=== PATIENT | female | born 1970 | race Two or more races ===

== ENCOUNTER 2018-07-16 08:09 | Observation (INO) | payer OTHER ==
--- NOTE | 2018-07-16 08:48 | PDOC ---
History of Present Illness - General Chief Complaint: Revisit, Lab Variance Stated Complaint: ANEMIA Time Seen by Provider: 07/16/18 08:23 History Source: Patient Exam Limitations: Language Barrier (cyrocom [id number]) - History of Present Illness Initial Comments: 07/16/18 08:46 48 yr old amharic speaking woman A1 with no significant phmx sent by PCP ( Camilo Cedeño from [address] [place] [address]) for anemia seen on routine blood work yesterday. Pt received phone call last night that her Hgb was 6.0 and to present to the ED. pt has been having weakness, nausea, intermittent dizziness and palpitations when walking and headache and dry mouth for the past month. LMP 1 month ago, past few cycles she notes a change in her periods with heavy flow for 2 days then stopping and flow restarting for 4 days then stopping. Pmhx: denies Gynhx: had a miscarriage at 3mo about 11 yrs ago for which she received 2 units of prbcs. 2 healthy children age 13yr old girl and 11yr old boy sochx: smoker started at age 21 with 2-3/cig per day quit with her first and restarted smoking last year 1-2/cigs per day with current everyday smoking now. denies ETOH and drug use surghx: denies Fmhx: mother with DM w/diabetic nephropathy. Allergies: NKDA Meds: none, no supplements Past History - Travel Traveled outside of the country in the last 30 days: No Close contact w/someone who was outside of country & ill: No - Past Medical History Allergies/Adverse Reactions: Allergies Allergy/AdvReac Type Severity Reaction Status Date / Time No Known Allergies Allergy Verified 07/16/18 08:13 Home Medications: Ambulatory Orders NK [No Known Home Medication] 07/16/18 Anemia: Yes - Suicide/Smoking/Psychosocial Hx Smoking History: Never smoked *Physical Exam - Vital Signs Last Vital Signs Temp Pulse Resp BP Pulse Ox 97.9 F 60 16 118/58 L 100 07/16/18 08:19 07/16/18 08:19 07/16/18 08:19 07/16/18 08:19 07/16/18 08:19 - Physical Exam General Appearance: Yes: Nourished, Appropriately Dressed HEENT: positive: EOMI, SUSHANT, Pharynx Normal. negative: Tonsillar Exudate, Rhinorrhea, Sinus Tenderness Neck: positive: Trachea midline, Normal Thyroid, Supple. negative: Carotid bruit Respiratory/Chest: positive: Lungs Clear, Normal Breath Sounds. negative: Crackles, Rales, Wheezing Cardiovascular: positive: Regular Rhythm, Regular Rate. negative: Murmur Gastrointestinal/Abdominal: positive: Normal Bowel Sounds, Flat, Soft Musculoskeletal: negative: CVA Tenderness Extremity: positive: Normal Range of Motion. negative: Calf Tenderness, Erythema Integumentary: positive: Dry, Warm. negative: Jaundice, Petechiae, Ecchymosis Neurologic: positive: Fully Oriented, Alert Moderate Sedation - Procedure Monitoring Vital Signs: Procedure Monitoring Vital Signs Temperature 97.9 F 07/16/18 08:19 Pulse Rate 60 07/16/18 08:19 Respiratory Rate 16 07/16/18 08:19 Blood Pressure 118/58 L 07/16/18 08:19 O2 Sat by Pulse Oximetry (%) 100 07/16/18 08:19 ED Treatment Course - LABORATORY CBC & Chemistry Diagram: 07/16/18 08:42 07/16/18 08:42 Medical Decision Making - Medical Decision Making 07/16/18 08:54 48 yr old woman sent by PCP for anemia. repeat labs, type and screen, cmp, tsh. will order anemia labs and prbc's pending cbc results. diff include menorrhagia, occult gi bleed counseled smoking cessation 07/16/18 09:52 type and screen hemolyized, t&S reordered and re-sent Hgb 7.2 today, given pt's symptoms, will order 2 units Prbc's ordered anemia w/u vitb12,fe, tibc, haptoglobin given unknown duration or acuity of blood loss stool guaic ordered. 07/16/18 10:11 pt says she had been having abdominal fullness and NSAID use in the past, diff now includes gastric ulcers sent microblog to [facility] for med-surg obs due to symptomatic anemia 07/16/18 10:15 sign-out provided to admitting team for med-surg obs *DC/Admit/Observation/Transfer Diagnosis at time of Disposition: Symptomatic anemia - Discharge Dispostion Decision to Admit order: Yes - Referrals Referrals: Carlene Page NP [Primary Care Provider] - - Patient Instructions - Post Discharge Activity
[2018-07-16 09:28] LABS: BASO % 1.8 % (0-2.0); EOS % 1.8 % (0-4.5); HEMATOCRIT 24.5 % (32.4-45.2); HEMOGLOBIN 7.2 GM/dL (10.7-15.3); LYMPH % 21.2 % (8-40); MCHC 29.5 g/dl (32.0-36.0); MEAN CELL VOLUME 58.6 fl (80-96); MEAN PLT VOLUME 8.8 fl (7.5-11.1); MONO % 6.4 % (3.8-10.2); NEUT % 68.8 % (42.8-82.8); PLATELET COUNT 330 K/MM3 (134-434); RBC 4.18 M/mm3 (3.60-5.2); RDW 21.6 % (11.6-15.6); WHITE BLOOD COUNT 5.2 K/mm3 (4.0-10.0)
[2018-07-16 09:29] LABS: MCH 17.3 pg (25.7-33.7)
[2018-07-16 09:43] LABS: INR 1.13 (0.83-1.09); PROTHROMBIN TIME (PATIENT) 13.3 SEC (9.7-13.0)
[2018-07-16 09:45] LABS: ALBUMIN 3.7 g/dl (3.4-5.0); ALK PHOS 61 U/L (45-117); ANION GAP 7 MMOL/L (8-16); BILIRUBIN,TOTAL 0.4 mg/dL (0.2-1); BLOOD UREA NITROGEN 9 mg/dL (7-18); CALCIUM 8.1 mg/dL (8.5-10.1); CHLORIDE 108 mmol/L (98-107); CO2 22 mmol/L (21-32); CREATININE 0.6 mg/dL (0.55-1.3); GLUCOSE,RANDOM 94 mg/dL (74-106); POTASSIUM 4.6 mmol/L (3.5-5.1); SGOT/AST 44 U/L (15-37); SGPT/ALT 12 U/L (13-61); SODIUM 137 mmol/L (136-145); TOT PROT 7.8 g/dl (6.4-8.2)
[2018-07-16 09:46] LABS: ACTIVATED PTT 23.2 SECONDS (25.2-36.5)
--- NOTE | 2018-07-16 10:26 | HP ---
CHIEF COMPLAINT: Headache, lightheadedness PCP: TEA Concepcion ([address] [place] [address]) HISTORY OF PRESENT ILLNESS: 48yo Swazi-speaking A1 F with no medical history who presents today from her PCP who sent her here for abnormal hemoglobin. Pt saw her PCP on and had routine labs drawn. She received a call from her PCP to come to the ER due to her Hgb being 6.0 on her office lab draw. Pt was found to have 7.2 Hgb here in the ED. Pt reports she's been having lightheadedness, dizziness , and palpitations intermittently for the past month exacerbated by walking and activity. She also notes some intermittent shortness of breath during these periods as well. She endorses having irregular periods for the past 3 months. She states that her menstrual period has fluctuated with heavy flow and normal flow from month to month. Her LMP was about 1 month ago with heavy flow and irregularity (started 2 days; stopped x1 day, then restarted 4 days). The last visit to her [facility] was about 10 years ago when she had a miscarriage and received 2U PRBC. Pt currently has some lightheadedness, however her palpitations have gotten better. She denies any bleeding that she is aware of. Her last BM was 1 day ago , however she does not look if her BM have become black in colour. Pt denies n/v /f/c, chest pain, abdominal pain, d/c, polyuria, dysuria, hematuria. Recent Travel: Denies PAST MEDICAL HISTORY: None reportedly PAST SURGICAL HISTORY: Denies Social History: Smoking: Former smoker; started 21yo (2-3 cig/day); quit during pregnancies; restarted last year (1-2 cigs/day) Alcohol: Denies Drugs: Denies Lives with . Has 2 children. Independent in ADLs Family History: Mother - Diabetes complicated by nephropathy Allergies No Known Allergies Allergy (Verified 07/16/18 08:13) HOME MEDICATIONS: Home Medications Medication Instructions Recorded NK [No Known Home Medication] 07/16/18 REVIEW OF SYSTEMS As per HPI PHYSICAL EXAMINATION Vital Signs - 24 hr 07/16/18 08:19 Temperature 97.9 F Pulse Rate 60 Respiratory 16 Rate Blood Pressure 118/58 L O2 Sat by Pulse 100 Oximetry (%) GENERAL: NAD, awake, alert, and fully oriented, sitting in bed. HEENT: NC/AT, ANDREA, facial pallor noted, MMM NECK: No JVD. LUNGS: CTA bilaterally. No wheezes, and no crackles. No accessory muscle use. HEART: RRR, normal S1 and S2 without murmur . ABDOMEN: Soft, NT/ND, normoactive bowel sounds, no guarding. RECTAL: Deferred due to ED examination being already performed; ER exam reportedly normal MUSCULOSKELETAL: No CVA tenderness. EXTREMITIES: 2+ radial pulses b/l, warm, well-perfused. No calf tenderness. No peripheral edema. PSYCHIATRIC: Cooperative. Good eye contact. Appropriate mood and affect. SKIN: Warm, dry, no rashes or lesions noted Laboratory Results 07/16/18 07/16/18 07/16/18 08:42 08:42 08:42 WBC 5.2 RBC 4.18 Hgb 7.2 L Hct 24.5 L MCV 58.6 L MCH 17.3 L MCHC 29.5 L RDW 21.6 H Plt Count 330 MPV 8.8 Absolute Neuts (auto) 3.6 Neutrophils % 68.8 Lymphocytes % 21.2 Monocytes % 6.4 Eosinophils % 1.8 Basophils % 1.8 Nucleated RBC % 0 Retic Count PT with INR 13.30 H INR 1.13 H PTT (Actin FS) 23.2 L Sodium 137 Potassium 4.6 Chloride 108 H Carbon Dioxide 22 Anion Gap 7 L BUN 9 Creatinine 0.6 Creat Clearance w eGFR > 60 Random Glucose 94 Calcium 8.1 L Total Bilirubin 0.4 AST 44 H ALT 12 L Alkaline Phosphatase 61 Total Protein 7.8 Albumin 3.7 Beta HCG, Quant Blood Type Antibody Screen Crossmatch ASSESSMENT/PLAN: Symptomatic microcytic anemia Menometrorrhagia --Likely 2/2 to heavy menstrual periods over recent past --Serum HCG negative --Transfuse 2U PRBC --Rpt CBC for assessment of response after transfusions --F/u iron studies (drawn prior to transfusions) --Negative hemoccult; will only need regular surveillance colonoscopy starting age 50 --Would recommend f/u with FOOD CRITIC and f/u CBC in 1 week upon discharge --Monitor for transfusion reactions --Body Masker consult --Transvaginal US ordered to r/o fibroids or endometrial pathology FEN: Fluids: Bolus as needed; encourage PO Electrolyte abnormalities: Monitor Ca; cCa 8.3 currently Nutrition: Regular diet PPX: DVT - Low risk; early ambulation GI - Not indicated currently Dispo: Place in observation M/S; rpt CBC Case to be discussed Seth Lindsey DO - IM PGY-2 Visit type - Emergency Visit Emergency Visit: Yes ED Registration Date: 07/16/18 Care time: The patient presented to the Emergency Department on the above date and was hospitalized for further evaluation of their emergent condition. - New Patient This patient is new to me today: Yes Date on this admission: 07/16/18 - Critical Care Critical Care patient: No
[2018-07-16 10:45] LABS: RETICULOCYTES 1.26 % (0.5-1.5)
[2018-07-16 10:46] LABS: LDH 466 U/L (84-246)
[2018-07-16 13:02] LABS: ANISOCYTOSIS 2+; MACROCYTOSIS 0; OVALOCYTE 1+; PLATELET ESTIMATE NORMAL
--- NOTE | 2018-07-16 13:21 | PDOC ---
Documentation entered by Micaela Castillo SCRIBE, acting as scribe for Hunter Flores MD. Attending Attestation - Resident Resident Name: Maria Dolores Knox - ED Attending Attestation I have performed the following: I have examined & evaluated the patient, The case was reviewed & discussed with the resident, I agree w/resident's findings & plan, Exceptions are as noted - HPI HPI: 07/16/18 10:09 The patient is a 48 year old female, with a significant past medical history of , who presents to the emergency department with sent by PCP for a Hgb 6.0 on routine lab work in the office yesterday. The patient states she has been intermittently experiencing dizziness, weakness, nausea, and palpitations with walking for the past month. The patient denies chest pain, shortness of breath, headache. The patient denies fever, chills, vomit, diarrhea and constipation. The patient denies dysuria, frequency, urgency and hematuria. Allergies: NKDA - Physicial Exam PE: 07/16/18 11:17 Healthy conjunctiva Heart is regular without murmurs Lungs are clear Abdomen benign, guaiac pending - Medical Decision Making 07/16/18 11:18 48-year-old female newly diagnosed anemia, symptomatic on exertion. Hemoglobin 7.2 Initiate transfusion Admit for further workup Hunter Flores MD, MD/DO: This documentation has been prepared by the taniaibe Anna Amanda, SCRIBE, under my direction and personally reviewed by me in its entirety. I confirm that the documentation accurately reflects all work, treatment, procedures, and medical decision making performed by me.
[2018-07-16 14:03] VITALS: BMI 25.9
--- NOTE | 2018-07-16 20:16 | PN ---
Teaching Attending Note Name of Resident: Seth Lindsey ATTENDING PHYSICIAN STATEMENT I saw and evaluated the patient. I reviewed the resident's note and discussed the case with the resident. I agree with the resident's findings and plan as documented. SUBJECTIVE: Patient is a 48yo Indonesian-speaking A1 Female with no medical history who presents today from her PCP's office for having low hemoglobin of 6.0 that was drawn this past on her routine labs. She is c/o having intermittent shortness of breath , also stated that she has been having irregular periods for the past 3 months. She states that her menstrual period has fluctuated with heavy flow and normal flow from month to month. The last visit to her [facility] was about 10 years ago when she had a miscarriage and received 2U PRBC. OBJECTIVE: Vital Signs Temperature 98.8 F 07/16/18 19:00 Pulse Rate 54 L 07/16/18 19:00 Respiratory Rate 20 07/16/18 19:00 Blood Pressure 110/55 L 07/16/18 19:00 O2 Sat by Pulse Oximetry (%) 95 07/16/18 18:20 GENERAL: NAD, awake, alert, and fully oriented, sitting in bed. HEENT: NC/AT, ANDREA, facial pallor noted, MMM NECK: No JVD. LUNGS: CTA bilaterally. No wheezes, and no crackles. No accessory muscle use. HEART: RRR, normal S1 and S2 without murmur . ABDOMEN: Soft, NT/ND, normoactive bowel sounds, no guarding. MUSCULOSKELETAL: No CVA tenderness. EXTREMITIES: 2+ radial pulses b/l, warm, well-perfused. No calf tenderness. No peripheral edema. PSYCHIATRIC: Cooperative. Good eye contact. Appropriate mood and affect. SKIN: Warm, dry, no rashes or lesions noted BCD WBC 5.2 K/mm3 (4.0-10.0) 07/16/18 08:42 RBC 4.18 M/mm3 (3.60-5.2) 07/16/18 08:42 Hgb 7.2 GM/dL (10.7-15.3) L 07/16/18 08:42 Hct 24.5 % (32.4-45.2) L 07/16/18 08:42 MCV 58.6 fl (80-96) L 07/16/18 08:42 MCHC 29.5 g/dl (32.0-36.0) L 07/16/18 08:42 RDW 21.6 % (11.6-15.6) H 07/16/18 08:42 Plt Count 330 K/MM3 (134-434) 07/16/18 08:42 MPV 8.8 fl (7.5-11.1) 07/16/18 08:42 CMP Sodium 137 mmol/L (136-145) 07/16/18 08:42 Potassium 4.6 mmol/L (3.5-5.1) 07/16/18 08:42 Chloride 108 mmol/L (98-107) H 07/16/18 08:42 Carbon Dioxide 22 mmol/L (21-32) 07/16/18 08:42 Anion Gap 7 MMOL/L (8-16) L 07/16/18 08:42 BUN 9 mg/dL (7-18) 07/16/18 08:42 Creatinine 0.6 mg/dL (0.55-1.3) 07/16/18 08:42 Creat Clearance w eGFR > 60 (>60) 07/16/18 08:42 Random Glucose 94 mg/dL (74-106) 07/16/18 08:42 Calcium 8.1 mg/dL (8.5-10.1) L 07/16/18 08:42 Total Bilirubin 0.4 mg/dL (0.2-1) 07/16/18 08:42 AST 44 U/L (15-37) H 07/16/18 08:42 ALT 12 U/L (13-61) L 07/16/18 08:42 Alkaline Phosphatase 61 U/L (45-117) 07/16/18 08:42 Total Protein 7.8 g/dl (6.4-8.2) 07/16/18 08:42 Albumin 3.7 g/dl (3.4-5.0) 07/16/18 08:42 Current Medications Generic Name Dose Route Start Last Admin Trade Name Freq PRN Reason Stop Dose Admin Ferrous Sulfate 325 mg 07/16/18 22:00 Feosol - PO BID NATHALIE Polyethylene Glycol 17 gm 07/17/18 10:00 Miralax (For Daily Use) - PO DAILY [facility] Home Medications Medication Instructions Recorded NK [No Known Home Medication] 07/16/18 ASSESSMENT AND PLAN: Patient is a 48yo Indonesian-speaking A1 Female with no medical history who presents today from her PCP's office for having low hemoglobin of 6.0 that was drawn this past on her routine lab exam. # Acute symptomatic microcytic anemia: iron studies ordered,2 units of PRBC and repeat labs in 4 hrs post transfusion, obgyn consult and transvaginal us # Menometrorrhagia: Transvaginal US ordered to r/o fibroids or endometrial pathology DVT Px: Low risk; early ambulation Dispo: Place in observation Follow the US report
[2018-07-16] MEDS: FERROUS SO4 325 MG TABLET (FP) PO SCH (21:02)
[2018-07-16 23:52] LABS: HEMATOCRIT 29.3 % (32.4-45.2); MCHC 30.8 g/dl (32.0-36.0); MEAN CELL VOLUME 64.1 fl (80-96); MEAN PLT VOLUME 8.8 fl (7.5-11.1); PLATELET COUNT 307 K/MM3 (134-434); RBC 4.57 M/mm3 (3.60-5.2); RDW 28.5 % (11.6-15.6); WHITE BLOOD COUNT 6.6 K/mm3 (4.0-10.0)
[2018-07-16 23:53] LABS: MCH 19.7 pg (25.7-33.7)
[2018-07-17 07:37] LABS: BASO % 1.9 % (0-2.0); EOS % 2.2 % (0-4.5); HEMATOCRIT 28.4 % (32.4-45.2); HEMOGLOBIN 8.8 GM/dL (10.7-15.3); LYMPH % 23.8 % (8-40); MCH 19.8 pg (25.7-33.7); MEAN CELL VOLUME 63.8 fl (80-96); MEAN PLT VOLUME 8.8 fl (7.5-11.1); MONO % 6.7 % (3.8-10.2); NEUT % 65.4 % (42.8-82.8); PLATELET COUNT 290 K/MM3 (134-434); RBC 4.45 M/mm3 (3.60-5.2); RDW 28.6 % (11.6-15.6)
[2018-07-17 08:20] LABS: ALBUMIN 3.4 g/dl (3.4-5.0); ALK PHOS 57 U/L (45-117); ANION GAP 7 MMOL/L (8-16); BILIRUBIN,TOTAL 0.4 mg/dL (0.2-1); BLOOD UREA NITROGEN 9 mg/dL (7-18); CHLORIDE 110 mmol/L (98-107); CO2 22 mmol/L (21-32); CREATININE 0.6 mg/dL (0.55-1.3); GLUCOSE,RANDOM 93 mg/dL (74-106); MAGNESIUM 2.6 mg/dL (1.8-2.4); PHOSPHOROUS 3.1 mg/dL (2.5-4.9); POTASSIUM 4.1 mmol/L (3.5-5.1); SGOT/AST 11 U/L (15-37); SGPT/ALT 12 U/L (13-61); SODIUM 139 mmol/L (136-145); TOT PROT 6.8 g/dl (6.4-8.2)
[2018-07-17] MEDS: FERROUS SO4 325 MG TABLET (FP) PO SCH (09:11)
--- NOTE | 2018-07-17 09:35 | PN ---
Progress Note (short form) - Note Progress Note: potato picker consult done . menometrorrhagia due to large fibroid uterus , no active bleeding now , advised iron, vit , follow up in office 1 week, treatment discussed with patient , via fitness sales associate, patient will make appointment
[2018-07-17] MEDS ORDERED: POLYETHYLENE GLYCOL 3350 119 GM BTL PO SCH (10:00)
--- NOTE | 2018-07-17 10:01 | CONS ---
DATE OF CONSULTATION: 07/17/2018 REASON FOR CONSULTATION: Heavy irregular vaginal bleeding with anemia. HISTORY OF PRESENT ILLNESS: The patient is A 48-year-old -speaking female, 3, para 2, 1, with no significant past medical history, who was admitted with hemoglobin of 7.2 and complaining of being dizzy and tired. She complained of having irregular vaginal bleeding off and on that at times has been heavy. She has lower abdominal cramps and pain. PAST MEDICAL HISTORY: Two normal spontaneous vaginal deliveries. One spontaneous . No past surgical history and no history of PID or STD. States that she has had a Pap smear with her primary doctor, which has been normal. She denies any GI or rectal bleeding. The patient has received 2 units of packed RBCs on this admission. Her hemoglobin presently is 8.8, hematocrit of 28.4. She presently is not bleeding. PHYSICAL EXAMINATION: General: The patient appeared to be alert, oriented, comfortable, with no complaints. No dizziness. Abdomen: Soft. Mild tenderness in the lower abdomen with palpable large uterus, approximately 14 to 16 weeks' size, tender. Pelvic: External genitalia normal. Vagina with no blood, no lesions. Cervix with no gross lesion and no bleeding. Uterus enlarged, irregular, with multiple fibroids, approximately 14 to 16 weeks' size and tender on exam. Adnexa: No masses were palpable. IMPRESSION: Menometrorrhagia secondary to large fibroid uterus. Pelvic sonogram confirmed a large 7-cm fundal fibroid. The endometrium was not well visualized secondary to the fibroid. PLAN: Since the patient presently is not bleeding, there is no need for any present treatment. The patient was advised to follow up in the office in 1 week for followup. Options of fibroid emphysematous versus medical treatment of the fibroids versus surgical treatment discussed with the patient via gum scoring machine operator. She will follow up in the office in 1 week to follow up for the fibroids. Advised if heavy bleeding, pain, return to the ER. ARCHIE LATIF M.D. [id number]
[2018-07-17] MEDS ORDERED: IRON SUCROSE INJECTION 300 MG in SODIUM CHLORIDE 235 ML IVPB ONE (11:00)
[2018-07-17 14:12] VITALS: BP 108/67; PULSE 58; TEMP 97.9
--- NOTE | 2018-07-17 15:14 | DS ---
Physical Exam: SUBJECTIVE: Patient seen and examined OBJECTIVE: Vital Signs Period Temp Pulse Resp BP Sys/Abreu Pulse Ox Last 24 Hr 97.8 F-98.8 F 54-65 18-20 107-119/54-71 95-99 PHYSICAL EXAM GENERAL: The patient is awake, alert, and fully oriented, in no acute distress. HEAD: Normal with no signs of trauma. EYES: PERRL, extraocular movements intact, sclera anicteric, conjunctiva clear. ENT: Ears normal, nares patent, oropharynx clear without exudates, moist mucous membranes. NECK: Trachea midline, full range of motion, supple. LUNGS: Breath sounds equal, clear to auscultation bilaterally, no wheezes, no crackles, no accessory muscle use. HEART: Regular rate and rhythm, S1, S2 without murmur, rub or gallop. ABDOMEN: Soft, nontender, nondistended, normoactive bowel sounds, no guarding, no rebound, no hepatosplenomegaly, no masses. EXTREMITIES: 2+ pulses, warm, well-perfused, no edema. NEUROLOGICAL: Cranial nerves II through XII grossly intact. Normal speech, gait not observed. PSYCH: Normal mood, normal affect. SKIN: Warm, dry, normal turgor, no rashes or lesions noted. LABS Laboratory Results - last 24 hr 07/16/18 07/16/18 07/17/18 09:28 23:30 07:00 WBC 6.6 5.0 RBC 4.57 4.45 Hgb 9.0 L 8.8 L Hct 29.3 L D 28.4 L MCV 64.1 L D 63.8 L MCH 19.7 L D 19.8 L MCHC 30.8 L 31.0 L RDW 28.5 H 28.6 H Plt Count 307 290 MPV 8.8 8.8 Absolute Neuts (auto) 3.2 Neutrophils % 65.4 Lymphocytes % 23.8 Monocytes % 6.7 Eosinophils % 2.2 Basophils % 1.9 Nucleated RBC % 0 Sodium Potassium Chloride Carbon Dioxide Anion Gap BUN Creatinine Creat Clearance w eGFR Random Glucose Calcium Phosphorus Magnesium Total Bilirubin AST ALT Alkaline Phosphatase Total Protein Albumin Blood Type O POSITIVE Antibody Screen Negative Crossmatch See Detail 07/17/18 07:00 WBC RBC Hgb Hct MCV MCH MCHC RDW Plt Count MPV Absolute Neuts (auto) Neutrophils % Lymphocytes % Monocytes % Eosinophils % Basophils % Nucleated RBC % Sodium 139 Potassium 4.1 Chloride 110 H Carbon Dioxide 22 Anion Gap 7 L BUN 9 Creatinine 0.6 Creat Clearance w eGFR > 60 Random Glucose 93 Calcium 8.0 L Phosphorus 3.1 Magnesium 2.6 H Total Bilirubin 0.4 AST 11 L ALT 12 L Alkaline Phosphatase 57 Total Protein 6.8 Albumin 3.4 Blood Type Antibody Screen Crossmatch HOSPITAL COURSE: Date of Admission:07/16/18 48 y.oi female with no PMH presented after being sent in form her PCP for having a hemoglobin of 6.0. due to her heavy menstrual cycles so she came to the ED,. on arrival her hgb was 7.2- she recieved 2 units and her hgb champ to 8.8. she had a travsnaginal u;./s done which showed a large fibroid uterus in addition to a right cyst on her ovary. she was d/c aafter having an iron infusion with strict follow up to see dr saenz the OB in 1 week in addition to see heme-onc for iron transfusion. she was stable to be d/c home. Date of Discharge: 07/17/18 Minutes to complete discharge: 39 Discharge Summary Reason For Visit: SECONDARY ANEMIA Current Active Problems Anemia (Chronic) Heavy menstrual period (Chronic) Vaginal bleeding (Chronic) Condition: Improved - Instructions Diet, Activity, Other Instructions: You came to the hospital because your blood levels were low and you were having symptoms of shortness of breath and palpitations You will need to get iron transfusions done over 14 days given that the iron stores in your body are very low Please follow up with your primary care physician, Dr. Concepcion within one week Please follow up with the feed mill operator, Dr. Saenz within one week, as you might need surgery to remove your uterus We are referring you to a compact assembler, Dr. Shepherd to see get iron transfusions done *if you begin to experience chest pains, shortness of breath, active bleeding please return to the emergency room immediately Referrals: Carlene Page NP [Primary Care Provider] - 1 Week Estrada Saenz MD [Staff Physician] - 1 Week Francisco Shepherd MD [Staff Physician] - Disposition: HOME - Home Medications Comprehensive Discharge Medication List: Ambulatory Orders Ferrous Sulfate [Feosol] 325 mg PO TID #90 tablet 07/17/18 Sennosides [Senna] 8.6 mg PO DAILY 30 Days #30 tablet 07/17/18 Problem List - Problems (1) Anemia Code(s): D64.9 - ANEMIA, UNSPECIFIED (2) Heavy menstrual period Code(s): N92.0 - EXCESSIVE AND FREQUENT MENSTRUATION WITH REGULAR CYCLE (3) Vaginal bleeding Code(s): N93.9 - ABNORMAL UTERINE AND VAGINAL BLEEDING, UNSPECIFIED This patient is new to me today: Yes Date on this admission: 07/17/18 Emergency Visit: Yes ED Registration Date: 07/16/18 Care time: The patient presented to the Emergency Department on the above date and was hospitalized for further evaluation of their emergent condition. Critical Care patient: No - Discharge Referral Referred to [facility] Med P.C.: No
--- NOTE | 2018-07-17 18:34 | PN ---
Teaching Attending Note Name of Resident: Namrata Helms ATTENDING PHYSICIAN STATEMENT I saw and evaluated the patient. I reviewed the resident's note and discussed the case with the resident. I agree with the resident's findings and plan as documented. SUBJECTIVE: no bleeding today. little abd cramping in LLQ nad lower abd. No CP or SOB OBJECTIVE: NAD CV: RRR, 2/6 Sm at base , no radiation Lungs: CTAB ext : javi duke or erythema Abd: soft, ND, TTP in suprapubic area and LLQ no rebound tenderness or guarding ASSESSMENT AND PLAN: 48 y/o lady with metomenorrhagea who was sent by PCP for anemia 1- blood loss anemia. due to vaginal bleed form fibroids. OB in stool is neg. iron studies indicate severe iron def. give IV iron x 1 , to follow with heme for full protocol TIBC and transferrin sat is still pending start iron suppl t dc 2- L ovarian cyst, pt was made aware and will need follow up imaging as out pt 3- dispo: dc home to follow with PCP , heme , and PASSENGER CAR CONDUCTOR
[2018-07-18 08:08] LABS: SERUM IRON SATURATION 22 % (15-55); TOTAL IRON BINDING CAPACITY 398 ug/dL (250-450); UIBC 310 ug/dL (131-425)
== END 2018-07-17 15:20 | disposition home or self-care (01) ==
LOC: SUPCPDRO 08:09 → JER 08:09 → JERBED 10:16 → J5S 10:58
PROVIDERS: ADMIT Internal Medicine; ATTEND Internal Medicine
PROC: 30233N1 Transfusion of Nonautologous Red Blood Cells into Peripheral Vein, Percutaneous Approach (ICD-10-PCS; principal; 2018-07-16)
PROC: 3E033GC Introduction of Other Therapeutic Substance into Peripheral Vein, Percutaneous Approach (ICD-10-PCS; 2018-07-16)
DX: D50.9 Iron deficiency anemia, unspecified (principal); N92.1 Excessive and frequent menstruation with irregular cycle; D25.9 Leiomyoma of uterus, unspecified
CPT/HCPCS: 36415; 36430; 76830-TC; 80053; 82272; 82607; 82728; 83540; 83550; 83615; 83735; 84100; 84702; 85025; 85027; 85044; 85610; 85730; 86850; 86900; 86901; 86922; 99285-25; G0378; J1756; P9038; P9058

== ENCOUNTER 2018-09-16 14:00 | Inpatient (IN) | payer OTHER ==
[2018-09-16 13:04] VITALS: BMI 26.4
--- NOTE | 2018-09-17 07:22 | HP ---
History & Physical Update - Physical Physical: No Change - Assessment Assessment: No Change - Plan Plan: No Change (h&p reviwedv , no changes)
[2018-09-17] MEDS ORDERED: PROPOFOL 20 ML ONE (07:34)
[2018-09-17] MEDS ORDERED: ROCURONIUM BROMIDE 50 MG/5 ML VIAL ONE (07:34)
[2018-09-17] MEDS ORDERED: HYDROmorphone HCl 2 MG/ML VIAL ONE (07:34)
[2018-09-17] MEDS ORDERED: fentaNYL CITRATE 250 MCG/5 ML VIAL ONE (07:34)
[2018-09-17] MEDS ORDERED: ceFAZolin SODIUM 1 GM VIAL ONE (07:36)
[2018-09-17] MEDS ORDERED: SODIUM CHLORIDE 0.9% P/F 10 ML VIAL IJ ONE (07:36)
[2018-09-17] MEDS ORDERED: BUPIVACAINE HCL/PF 0.5% (5MG/ML) 10 ML VIAL ONE (07:50)
[2018-09-17] MEDS ORDERED: MIDAZOLAM HCL 2 MG/2 ML SINGLE DOSE VIAL ONE ×2 (08:09)
[2018-09-17] MEDS ORDERED: ceFAZolin SODIUM 1 GM VIAL IVPB ONE (09:05)
[2018-09-17] MEDS ORDERED: GLYCOPYRROLATE 0.2 MG/1 ML VIAL ONE ×3 (09:31→10:33)
[2018-09-17] MEDS ORDERED: DEXAMETHASONE SOD PHOSPHATE 4 MG/1 ML VIAL ONE (09:31)
[2018-09-17] MEDS ORDERED: NEOSTIGMINE METHYLSULFATE 0.5 MG/ML - 10 ML MDV ONE (09:31)
[2018-09-17] MEDS ORDERED: KETOROLAC TROMETHAMINE 30 MG/1 ML VIAL ONE (10:10)
[2018-09-17] MEDS ORDERED: HYDROmorphone *PCA* 10MG/50ML DISP.SYRIN PCA ONE (10:38)
[2018-09-17] MEDS ORDERED: ONDANSETRON 4 MG/2 ML VIAL IVPUSH PRN ×2 (10:40→10:42)
[2018-09-17] MEDS ORDERED: IBUPROFEN 800 MG/8 ML IJ IVPB PRN (10:40)
[2018-09-17] MEDS ORDERED: PROMETHAZINE HCL 25 MG/1 ML VIAL IVPUSH PRN (10:42)
[2018-09-17] MEDS ORDERED: LACTATED RINGERS SOLUTION 1,000 ML IV SCH (10:45)
[2018-09-17] MEDS ORDERED: HYDROmorphone *PCA* 10MG/50ML DISP.SYRIN PCA SCH ×2 (10:45→12:08)
[2018-09-17] MEDS ORDERED: ELECTROLYTE-148 SOLN 1,000 ML IV SCH (10:45)
[2018-09-17] MEDS ORDERED: oxyCODONE HCL 5 MG TABLET PO PRN (10:49)
[2018-09-17] MEDS ORDERED: ACETAMINOPHEN 325 MG TABLET (FP) PO PRN (10:54)
[2018-09-17] MEDS ORDERED: BISACODYL 10 MG SUPP.RECT PR PRN (10:57)
--- NOTE | 2018-09-17 15:01 | OP ---
DATE OF OPERATION: 09/17/2018 PREOPERATIVE DIAGNOSES: Menometrorrhagia, anemia, pelvic pain, fibroid uterus, and adenomyosis. POSTOPERATIVE DIAGNOSES: Menometrorrhagia, anemia, pelvic pain, fibroid uterus, and adenomyosis. PROCEDURES: Supracervical abdominal hysterectomy, bilateral salpingectomy. SURGEON: Archie Dennis MD CHART CLERK: ANESTHESIA: General. ESTIMATED BLOOD LOSS: 50 mL. OPERATION: The patient was taken to the operating room and had adequate general anesthesia. Abdomen and perineum were prepped and draped. Pfannenstiel abdominal skin incision was made. Abdominal wall was cut [id number]. Anterior peritoneum was exposed and incised. Upon entering the abdominal cavity, upper abdomen when checked was normal. Bowels were packed away. The uterus was enlarged uniformly and consistent with adenomyosis. Both ovaries appeared to be normal. No pelvic adhesions noted. Bladder and the cul-de-sac were normal. Then, was placed at the cornua region of the uterus and the uterus was delivered. Then, with 2 large retractors in the abdomen, the round ligament was identified bilaterally, clamped with the LigaSure bipolar cautery, cauterized, and cut. The anterior leaf of broad ligament was opened. Bladder was pushed down. Then, a hole was made in broad ligament and then the left tube was grasped with bipolar cautery, cauterized along the mesosalpinx and the tubes were removed. Then, the utero-ovarian ligament was clamped with Cecil clamp, cut, and the clamp replaced with 0 Vicryl ties bilaterally. At this time, bladder was further pushed down. Bilateral uterine artery was identified, clamped with Cecil clamp, cut, and the clamp replaced with 3-0 Vicryl suture bilaterally. The stump on the cervical area was clamped with Cecil clamp, cut, and the clamp replaced with 3-0 Vicryl suture bilaterally. Then, the specimen was removed above the cervix. Then, the cervical angles were sutured with interrupted suture of the 2-0 Vicryl and then the cervix also was closed with a continuous suture of 3-0 Vicryl and hemostasis was established. Pelvic cavity several times irrigated and no active bleeding was seen. Both ureters were manually palpated were normal. Urine was clear. All the laparotomy and sponge and instrument counts were correct. No active bleeding was seen. Then, peritoneum was closed with 0 Vicryl continuous suture, muscles were brought together with interrupted suture of 3-0 Vicryl, fascia was closed with 3-0 Vicryl continuous suture, subcutaneous fat interrupted suture of 3-0 Vicryl, and the skin was closed with 4-0 Biosyn subcuticular continuous suture. Patient tolerated procedure well. Left the OR in good condition. ARCHIE DENNIS M.D. [id number]
[2018-09-17] MEDS: CEFAZOLIN 1 GM/D5W 1 GM/50 ML BAG IVPB SCH (17:05)
[2018-09-18] MEDS: CEFAZOLIN 1 GM/D5W 1 GM/50 ML BAG IVPB SCH ×3 (01:09→17:53)
[2018-09-18 07:29] LABS: POTASSIUM 4.2 mmol/L (3.5-5.1)
[2018-09-18 07:37] LABS: HEMATOCRIT 35.8 % (32.4-45.2); HEMOGLOBIN 11.6 GM/dL (10.7-15.3); MCH 27.4 pg (25.7-33.7); MCHC 32.5 g/dl (32.0-36.0); MEAN CELL VOLUME 84.2 fl (80-96); PLATELET COUNT 240 K/MM3 (134-434); RBC 4.25 M/mm3 (3.60-5.2); WHITE BLOOD COUNT 11.2 K/mm3 (4.0-10.0)
--- NOTE | 2018-09-18 07:51 | PN ---
Progress Note (short form) - Note Progress Note: Anesthesiology Post-op/Pain Service POD#1 s/p supracervical hysterectomy under GA with TAP blocks and post-op EXTENSION WORKER. Pt. is resting in bed. she does c/o some pain but this is managed with EXTENSION WORKER. She also c/o some mild nausea but this is also managed with medication. She is still NPO except ice chips. VSS. No other complaints. 48 y.o. woman with stable post-operative course. Continue EXTENSION WORKER for now and transition to PO meds once tolerating PO. Encouraged activity.
[2018-09-18] MEDS: ENOXAPARIN NA (PORCINE) 40 MG/0.4 ML DISP.SYRIN SQ SCH (09:40)
[2018-09-18 09:50] LABS: CREATININE 0.6 mg/dL (0.55-1.3)
--- NOTE | 2018-09-18 11:56 | PN ---
Progress Note (short form) - Note Progress Note: pod 1, doing well, no c/o sitting on chair CBC, BMP 09/18/18 06:35 09/18/18 06:35 Last Vital Signs Temp Pulse Resp BP Pulse Ox 98.2 F 53 L 16 101/56 L 99 09/18/18 08:00 09/18/18 08:00 09/18/18 08:00 09/18/18 08:00 09/18/18 05:40 abdomen soft, no distension, no cva incison dry no vaginal bleeding,or discharge no calf tenderness plan ambulate, d/c SHOP LEAD advance diet
[2018-09-18] MEDS ORDERED: PCA PUMP KEY 1 EACH EACH ONE (12:37)
[2018-09-18] MEDS: SIMETHICONE 80 MG TAB.CHEW (FP) PO PRN ×2 (14:23→20:24)
[2018-09-18] MEDS: oxyCODONE HCL 5 MG TABLET PO PRN ×2 (14:23→20:22)
[2018-09-18] MEDS: IBUPROFEN 600 MG TABLET (FP) PO PRN ×2 (14:24→20:22)
[2018-09-19] MEDS: CEFAZOLIN 1 GM/D5W 1 GM/50 ML BAG IVPB SCH ×2 (02:59→10:34)
[2018-09-19] MEDS: IBUPROFEN 600 MG TABLET (FP) PO PRN ×2 (03:12→09:37)
[2018-09-19] MEDS: SIMETHICONE 80 MG TAB.CHEW (FP) PO PRN ×2 (03:12→09:36)
[2018-09-19] MEDS: oxyCODONE HCL 5 MG TABLET PO PRN ×2 (03:13→09:35)
--- NOTE | 2018-09-19 07:56 | DS ---
Physical Exam-AIRCRAFT TECHNICIAN Vital Signs: Vital Signs Temperature 97.8 F 09/18/18 21:16 Pulse Rate 57 L 09/18/18 21:16 Respiratory Rate 20 09/18/18 21:16 Blood Pressure 93/56 L 09/18/18 21:16 O2 Sat by Pulse Oximetry (%) 99 09/18/18 05:40 Constitutional: Yes: Well Nourished, No Distress, Calm Eyes: Yes: WNL, Conjunctiva Clear, EOM Intact HENT: Yes: WNL, Atraumatic, Normocephalic Neck: Yes: WNL, Supple, Trachea Midline Cardiovascular: Yes: WNL, Regular Rate and Rhythm Respiratory: Yes: WNL, Regular, CTA Bilaterally Gastrointestinal: Yes: WNL ...Rectal Exam: Yes: WNL Renal/: Yes: WNL Breast(s): Yes: WNL Musculoskeletal: Yes: WNL Extremities: Yes: WNL Integumentary: Yes: WNL Wound/Incision: Yes: Clean/Dry, Well Approximated, Sutures Intact Neurological: Yes: WNL, Alert, Oriented ...Motor Strength: WNL Psychiatric: Yes: WNL, Alert, Oriented Labs: CBC, BMP 09/18/18 06:35 09/18/18 06:35 Discharge Summary Reason For Visit: FIBROIDS UTERUS, MENOMETRORRHAGIA, IRON DEFICIENCY Procedures: Principal: supracervcal abdominal hysterectomy, Other Procedures: bilateral salpingectomy Condition: Good - Instructions Diet, Activity, Other Instructions: regular diet, follow up office 2 weeks, if fever, pain, heavy vaginal bleeding call MD Referrals: Estrada Dennis MD [Staff Physician] - Disposition: HOME - Home Medications Comprehensive Discharge Medication List: Ambulatory Orders Ferrous Sulfate [Feosol] 325 mg PO UTDICT 09/16/18 Ibuprofen [Motrin -] 600 mg PO TID #90 tablet 09/17/18
[2018-09-19] MEDS: ENOXAPARIN NA (PORCINE) 40 MG/0.4 ML DISP.SYRIN SQ SCH (09:37)
[2018-09-19 10:18] VITALS: BP 126/69; PULSE 59; TEMP 97.7
--- NOTE | 2018-09-24 13:06 | PATH ---
Surgical Pathology Report Patient Name: ANUSHA NORRIS [facility]. Rec. #: [id number] /Age/Gender: 1970 (Age: 48) / F Account: [id number] Location: [facility] OBS/SEWER CLEANER Taken: 09/17/2018 Received: 09/17/2018 Reported: 09/20/2018 Physicians: Estrada Dennis M.D. Specimen(s) Received UTERUS,BILATERAL FALLOPIAN TUBES Clinical History Fibroid uterus, menorrhagia, iron deficiency Final Diagnosis UTERUS, BILATERAL FALLOPIAN TUBES, SUPRACERVICAL HYSTERECTOMY AND BILATERAL SALPINGECTOMY: LEIOMYOMATA WITH FOCAL DEGENERATIVE CHANGE. PROLIFERATIVE ENDOMETRIUM WITH CHRONIC ENDOMETRITIS. BILATERAL FALLOPIAN TUBES WITH PARATUBAL CYSTS. Electronically Signed Alex Hayes M.D. Gross Description Received in formalin labeled "uterus, bilateral fallopian tubes," is a 473 g supracervically amputated uterus with no attached adnexa. The specimen measures 10 cm from superior to inferior, 10 cm from anterior to posterior and 8.8 cm from left to right. The serosa is asher-pink and smooth. The endometrial cavity measures 8 cm in length and 3.5 cm from cornu to cornu. The endometrium is red and averages 0.1 cm in thickness. The myometrium displays 2 intramural and submucosal nodules measuring 1.7 and 5.5 cm (submucosal) in greatest dimension. The larger intramural nodule displays foci of degeneration. The remaining myometrium is asher-pink and measures up to 2 cm in thickness. The bilateral, undesignated, fimbriated fallopian tubes are separately received within the same container. The tubes each measure 5.5 cm in length. The outer surfaces are staley purple and smooth. Sectioning reveals unremarkable lumen. Medication Technician sections are submitted in 14 cassettes as follows: 1-cervical stump margin of resection; 9-3-[id number]; 6-smaller intramural nodule; 7-9-larger intramural nodule; 10-arbitrarily designated "fallopian tube 1" fimbria; 11-cross sections of arbitrarily designated "fallopian tube 1"; 12-arbitrarily designated "fallopian tube 2" fimbria; 13-cross section of arbitrarily designated "fallopian tube 2." 14-additional endometrium DL/09/17/2018 saudi09/17/2018
== END 2018-09-19 10:00 | disposition home or self-care (01) | DRG 519 ==
LOC: EDSTATUS 14:00 → JSAMEDAYSX 09-17 05:00 → J3W 09-17 12:56
PROVIDERS: ADMIT Obstetrics & Gynecology; ATTEND Obstetrics & Gynecology
PROC: 0UT70ZZ Resection of Bilateral Fallopian Tubes, Open Approach (ICD-10-PCS; 2018-09-17)
PROC: 0UT90ZL Resection of Uterus, Supracervical, Open Approach (ICD-10-PCS; principal; 2018-09-17 08:00)
DX: D25.9 Leiomyoma of uterus, unspecified (principal); N92.1 Excessive and frequent menstruation with irregular cycle; R10.2 Pelvic and perineal pain; N80.0 Endometriosis of uterus; D50.9 Iron deficiency anemia, unspecified
CPT/HCPCS: 36415; 71046-TC-FY; 80048; 80053; 84702; 84703; 85025; 85027; 85610; 85730; 86850; 86900; 86901; 88307-TC; 93005; 93010; 94010; 94760